=== PATIENT | female | born 1990 | race Caucasian/White ===

== ENCOUNTER 2024-01-10 12:53 | Observation (INO) ==
[2024-01-10] MEDS ORDERED: PHARMACY GLYCEMIC MGMT CONSULT PRN (13:24)
[2024-01-10] MEDS: Patient's HEIGHT &/or WEIGHT Needed STA (14:12)
[2024-01-10] MEDS: SODIUM CHLORIDE 0.9% 1,000 ML IV SCH (14:34)
--- NOTE | 2024-01-10 14:38 | History & Physical Report ---
Date of Service January 10, 2024 Assessment & Plan (1) Kourtney-rectal abscess: Plan: This is a 33yF with a PMH of DM1, anxiety/depression, GERD, IBS, genital herpes who presents as a direct admit from our surgical offices on 01/10/24 with concern for a kourtney-rectal abscess. Patient states she felt a lump in the area last 01/06/24. By Wednesday the area grew and became red and more painful. She ended up going to Urgent Care where the prescribed Doxycycline for concern for a "cyst" per patient. Despite starting the antibiotics she said the area continued to worsen in regards to size, swelling, and pain. She ended up going to the [facility] over the where they performed a bedside I&D. Some packing was placed and it came out the next time she got washed up. Unfortunately last night she felt chills/sweats and could not get comfortable to sleep [id number]. Because the pain felt worse to her she called and got in for a primary care appt today where after evaluating the site of concern was referred her to our surgical offices for another look. Today in our office patient appeared uncomfortable and due to some ongoing induration around the site it was recommended she come into the hospital to undergo a CT scan, IV abx, and determination on further surgery if indicated. Patient otherwise denies CP/SOB, abdominal pain, change in bowel habits. The wound has been draining a yellow/bloody substance for her. - Currently blood work is pending. Vital signs are stable. On examination there is a site of I&D of the R buttocks region with a white central region, with surrounding erythema, induration, and tenderness to palpation. There is bloody drainage mixed with a yellow/coburn substance on gauze dressing. We will obtain a CT a/p for further evaluation and to rule out residual abscess in the area. Pending CT scan and symptoms we may place her on the OR schedule for further incision and drainage tomorrow. For now patient may have a diet, keep NPO at midnight, and will place on IV abx. Pharmacy has been consulted for assistance given patient's history of DM type 1. We will follow up on results and further recommendations to follow. Admission and Anticipated Discharge Date Admission Date: January 10, 2024 History of Present Illness Primary Care Provider: SOFIA Morillo This is a 33yF with a PMH of DM1, anxiety/depression, GERD, IBS , genital herpes who presents as a direct admit from our surgical offices on 01/10/24 with concern for a kourtney-rectal abscess. Patient states she felt a lump in the area last 01/06/24. By Wednesday the area grew and became red and more painful. She ended up going to Urgent Care where the prescribed Doxycycline for concern for a "cyst" per patient. Despite starting the antibiotics she said the area continued to worsen in regards to size, swelling, and pain. She ended up going to the [facility] over the where they performed a bedside I&D. Some packing was placed and it came out the next time she got washed up. Unfortunately last night she felt chills/sweats and could not get comfortable to sleep [id number]. Because the pain felt worse to her she called and got in for a primary care appt today where after evaluating the site of concern referred her to our surgical offices for another look. Today in our office patient appeared uncomfortable and due to some ongoing induration around the site it was recommended she come into the hospital to undergo a CT scan, IV abx, and determination on further surgery if indicated. Patient otherwise denies CP/SOB, abdominal pain, change in bowel habits. The wound has been draining a yellow/bloody substance for her. This has never happened to her before. She denies history of crohns/IBD in family. Allergies Allergy/AdvReac Type Severity Reaction Status Date / Time sulfamethoxazole AdvReac Mild Rash Verified 01/10/24 11:39 [From Bactrim] trimethoprim [From Bactrim] AdvReac Mild Rash Verified 01/10/24 11:39 Home Medications Medication Instructions Recorded Confirmed Type blood-glucose meter #1 ea 02/12/22 01/10/24 Rx rosuvastatin 20 mg tablet 20 mg PO DAILY #90 tabs 02/13/22 01/10/24 Rx acetone (urine) test (Ketostix #50 ea 03/20/22 01/10/24 Rx strips) glucagon 3 mg/actuation nasal 3 mg intranasal ONCE PRN 04/17/22 01/10/24 History spray (Baqsimi) glucose 4 gram chewable tablet 4 g PO Q15M PRN hypoglycemia #90 06/22/22 01/10/24 Rx tabs pen needle, diabetic 32 gauge x #100 ea 06/22/22 01/10/24 Rx 5/32" (BD Ultra-Fine Opal Pen Needle) blood sugar diagnostic (Contour 11/06/22 01/10/24 History Next Test Strips) famotidine 40 mg tablet 40 mg PO BID #180 tabs 01/20/23 01/10/24 Rx pantoprazole 20 mg tablet,delayed 20 mg PO BID #180 tabs 04/16/23 01/10/24 Rx release promethazine 25 mg tablet 25 mg PO TID PRN nausea and 07/30/23 01/10/24 Rx vomiting #20 tabs sumatriptan succinate 50 mg tablet See Rx Instructions PO .COMPLEX 07/30/23 01/10/24 Rx (Imitrex) #20 tabs fluoxetine 20 mg tablet 20 mg PO DAILY #90 tabs 09/27/23 01/10/24 Rx cholecalciferol (vitamin D3) 25 25 mcg PO DAILY 09/30/23 01/10/24 History mcg (1,000 unit) capsule doxycycline hyclate 100 mg tablet 100 mg PO BID 7 days #14 tabs 09/30/23 01/10/24 Rx mecobalamin (vitamin B12) 1,000 1,000 mcg PO DAILY 09/30/23 01/10/24 History mcg lozenges multivitamin with minerals 1 tab PO DAILY 09/30/23 01/10/24 History (Hair,Skin and Nails tablet) valacyclovir 1 gram tablet 1,000 mg PO BID 10 days #20 tabs 09/30/23 01/10/24 Rx insulin degludec 100 unit/mL (3 20 unit (0.2 mL) subcut DAILY #15 11/05/23 01/10/24 Rx mL) subcutaneous pen (Tresiba mL FlexTouch U-100 insulin) Novolog FlexPen U-100 Insulin 100 See Rx Instructions subcut TID #45 11/08/23 01/10/24 Rx unit/mL (3 mL) subcutaneous mL (insulin aspart U-100) Past Med/Surg History Medical History Genital herpes GERD without esophagitis Hiatal hernia History of diabetic ketoacidosis (06/2022) Anxiety and depression Diarrhea Hypercholesterolemia IBS (irritable bowel syndrome) Type 1 diabetes Surgical History History of wisdom tooth extraction Family History Other Breast cancer Denies family history of Ovarian cancer Prostate cancer Myocardial infarction Colorectal cancer Social History Smoking Status: Never smoker Tobacco Type: Cigarettes packs per day: 0.5; Second Hand Exposure: Yes; Do You Dip or Chew Tobacco: No; Hx Alcohol Use: Yes Alcohol Intake Frequency: Monthly or Less Hx Substance Use: Yes Last Used Substance: Unknown Preferred Language: Maori Communication Ability: Effective Visual Impairment: Partially Limited Hearing Ability: Normal Customer Care Voice Consultant Required: No Beliefs That Will Affect Care: None marital status: Legally Current Living Situation: Alone Current Living Situation Comment: friend current occupational status: employed current occupation: [employer] How many Children do You have: 0 Other Information That Helps Us Care for You: No Feels Safe at Home: Yes Safety Concerns: Feels Safe At This Time Childhood Exposure to Second-Hand Smoke: Yes Diet: gluten free and lactose free caffeine: Yes during the past year weight has: remained stable Dental Care, Regularly: Yes Physical Activity Frequency: 3-4 Times per Week Seatbelt Use: always Sunscreen Use: Yes Assistive Devices: Glasses Review of Systems Constitutional: + chills and + sweats; no fever Respiratory: no dyspnea Cardiovascular: no chest pain Gastrointestinal: + nausea; no abdominal pain and no villalpando e in bowel habits Integumentary: hot, painful lump of R buttocks region Physical Exam Physical Exam: awake/alert, no distress Constitutional: well developed and well nourished Respiratory: normal respiratory effort Cardiovascular: Rate/Rhythm: regular rate Gastrointestinal (Abdomen): Percussion/Palpation: abdomen soft Skin: there is a site of I&D of the R buttocks region with a white central region and surrounding erythema and induration, tender to palpation. bloody drainage mixed with a yellow/coburn substance on gauze dressing Results & Data Results & Data Vital Signs (Past 12 Hours) Vital Signs Temp Pulse Resp BP Pulse Ox O2 Del Method 01/10/24 13:26 97.7 F 93 H 14 114/77 99 Room Air 01/10/24 13:20 97.7 F 93 H 14 114/77 99 Room Air PG Care Time/CCT Total # of Minutes Spent Total Time Spent with Patient: Total time spent is greater than 50% in coordination of care (as documented) at patient's floor/unit and/or counseling patient: Coding Level of Care Code 35347 INT INP/OBS CARE 2/55MIN Diagnoses Kourtney-rectal abscess K61.1
[2024-01-10 14:40] LABS: Calcium 9.3 mg/dl (8.6-10.3); Potassium 3.9 mmol/L (3.5-5.1)
[2024-01-10] MEDS: PIPERACILLIN/TAZOBACTAM 4.5 GM in DEXTROSE 5% MINI-B 100 ML IV ONE (14:42)
[2024-01-10 14:46] LABS: BUN Creatinine Ratio 21.3 (10-20); Creatinine Clr Calc Pharmacy 97.8 ml/min; Est GFR (African American) 110.7 ml/min; Est GFR (Non-African American) 95.5 ml/min
[2024-01-10] MEDS: OPTIRAY 320 100ml IV ONE (14:55)
--- NOTE | 2024-01-10 15:11 | Pharmacy Report ---
Pharmacy Glycemic Short Note 2 - Date of Service January 10, 2024 - Glycemic Short BSG Results (Last 24 hours): 01/10/24 01/10/24 13:52 13:57 Glucose 236 H POC Glucose 241 H OUTPATIENT ANTIDIABETIC REGIMEN: * Tresiba 20 units daily (last administered 01/09 AM per RN) * Novolog CHO ratio 8 g CHO/unit * HbA1c 11.0% on 12/13/23 ASSESSMENT: * 33 yo F with poorly controlled TYPE 1 diabetes admitted for perirectal abscess. No historical inpatient data to review. Plan for possible surgical intervention tomorrow with NPO status * Patient has type 1 diabetes therefore a redcution of 20% of basal is indicated for NPO status. Will scheduled tomorrow AM. * Will utilize home CHO ratio. Will however use a much looser correction factor for now since it's unclear at this time how a tighter correction factor will be tolerated and would like to avoid hypoglycemia preop / overnight when patient is NPO * Patient consumed a late lunch. Will therefore omit correction factor with dinner check to help prevent stacking. PLAN FOR INPATIENT GLYCEMIC CONTROL: * Basal insulin * Lantus 16 units SQ qAM (while NPO) * Bolus insulin * NovoLog per scale ACHS or Q6hrs while NPO * Goal Range: Low 120 mg/dL - High 150 mg/dL * Correction Factor: 40 mg/dL/unit * Nutritional / Prandial insulin per carb ratio of 1 unit per 8 grams CHO consumed
--- NOTE | 2024-01-10 15:34 | CT Scan Report ---
ABDOMEN AND PELVIS CT WITH IV CONTRAST CT DOSE: 1266.76 mGy.cm HISTORY: Acute perirectal pain eval possbile johnathan-rectal abscess TECHNIQUE: Multiaxial CT images of the abdomen and pelvis were performed following the IV administrat ion of 90 cc of Optiray, A dose lowering technique was utilized adhering to the principles of ALARA. COMPARISON STUDY: 01/22/2010 FINDINGS: Clear lung bases. No free air. Unremarkable spleen, pancreas, gallbladder, adrenal glands a nd liver. Patency of the hepatic and portal veins. Unremarkable kidneys. No hydronephrosis. Mild blad deborah wall thickening with partial distention. Heterogeneity of the uterus with a few uterine lesions i ncluding a 1.6 cm pedunculated left fundal lesion and possible submucosal lesions. 2 cm right adnexal cystic focus suggestive of a dominant follicle. Aorta and IVC are unremarkable. No lymphadenopathy. No bowel obstruction. Moderate colonic fecal retention. No intra-abdominal fluid collections. Normal appendix. There is a small ulceration involving inferomedial right gluteal fold image 400 series 3 wi th associated skin thickening and subcutaneous stranding. No abscess or perianal fistula. Unremarkabl e osseous structures. IMPRESSION: 1. Small cutaneous ulcer of the inferior medial right gluteal fold with associated cellulitis. No abs cess or fistula. 2. Normal appendix. 3. Moderate colonic fecal retention. ACT 112: Negative or not required by law. The above report was generated using voice recognition software. It may contain grammatical, syntax o r spelling errors. Electronically signed by: Rc Davis M.D. 01/10/2024 3:32 PM
[2024-01-10] MEDS: INSULIN ASPART PER UNIT CHARGE SC SCH ×2 (16:07→17:01)
[2024-01-10] MEDS ORDERED: INSULIN ASPART PER UNIT CHARGE SC ONE (16:30)
[2024-01-10] MEDS: MoRPHine SULFATE 2 MG/ML CARP IV PRN (17:01)
[2024-01-10 18:18] LABS: Basophils # (auto) 0.03 K/uL (0.00-0.20); Basophils % (auto) 0.3 %; Eosinophils # (auto) 0.37 K/uL (0.00-0.50); Eosinophils % (auto) 3.7 %; Hemoglobin 12.7 g/dl (12.0-16.0); Immature Granulocytes # (auto) 0.18 K/uL (0.01-0.20); Immature Granulocytes % (auto) 1.8 %; Lymphocytes # (auto) 1.76 K/uL (1.20-3.40); Lymphocytes % (auto) 17.4 %; Mean Corpuscular Hgb Conc 35.3 g/dL (32.0-36.0); Mean Corpuscular Volume 90.7 fL (80.0-100.0); Mean Platelet Volume 10.9 fL (9.4-12.4); Monocytes # (auto) 0.86 K/uL (0.11-0.59); Monocytes % (auto) 8.5 %; Neutrophils # (auto) 6.92 K/uL (1.40-6.50); Neutrophils % (auto) 68.3 %; Platelet Count 328 K/uL (130-400); RDW Standard Deviation 39.8 fL (36.4-46.3); Red Blood Count 3.97 M/uL (4.20-5.40); White Blood Count 10.12 K/ul (4.8-10.8)
[2024-01-10] MEDS: PIPERACILLIN/TAZOBACTAM 4.5 GM in DEXTROSE 5% MINI-B 100 ML IV SCH (19:34)
[2024-01-10] MEDS: PANTOprazole 40 MG TAB PO SCH (20:28)
[2024-01-10] MEDS: FAMOTIDINE 40 MG TABLET PO SCH (20:29)
[2024-01-11] MEDS: ONDANSETRON INJ 2 MG/ML 2 ML VIAL IV PRN (03:39)
[2024-01-11] MEDS: ACETAMINOPHEN 325 MG TAB PO PRN (03:43)
[2024-01-11 06:00] LABS: Hematocrit (blood only) 34.7 % (37.0-47.0); Hemoglobin 12.2 g/dl (12.0-16.0); Lymphocytes % (auto) 20.4 %; Mean Corpuscular Hemoglobin 32.1 pg (25.0-34.0); Mean Corpuscular Hgb Conc 35.2 g/dL (32.0-36.0); Mean Corpuscular Volume 91.3 fL (80.0-100.0); Mean Platelet Volume 10.5 fL (9.4-12.4); Neutrophils % (auto) 62.7 %; Platelet Count 305 K/uL (130-400); RDW Coefficient of Variation 12.1 % (11.5-14.5); RDW Standard Deviation 40.7 fL (36.4-46.3); White Blood Count 7.54 K/ul (4.8-10.8)
[2024-01-11 06:01] LABS: Basophils # (auto) 0.05 K/uL (0.00-0.20); Basophils % (auto) 0.7 %; Eosinophils # (auto) 0.49 K/uL (0.00-0.50); Eosinophils % (auto) 6.5 %; Immature Granulocytes # (auto) 0.04 K/uL (0.01-0.20); Immature Granulocytes % (auto) 0.5 %; Lymphocytes # (auto) 1.54 K/uL (1.20-3.40); Monocytes # (auto) 0.69 K/uL (0.11-0.59); Monocytes % (auto) 9.2 %; Neutrophils # (auto) 4.73 K/uL (1.40-6.50)
[2024-01-11] MEDS: INSULIN ASPART PER UNIT CHARGE SC SCH ×2 (06:09→13:02)
[2024-01-11 06:16] LABS: BUN Creatinine Ratio 17.9 (10-20); Calcium 8.8 mg/dl (8.6-10.3); Creatinine Clr Calc Pharmacy 100.3 ml/min; Est GFR (African American) 114.2 ml/min; Est GFR (Non-African American) 98.5 ml/min; Potassium 3.8 mmol/L (3.5-5.1)
[2024-01-11] MEDS ORDERED: CARBOHYDRATES FOR HYPOGLYCEMIA PO PRN (07:15)
[2024-01-11] MEDS ORDERED: GLUCOSE 40% GEL 15 GM TUBE PO PRN (07:15)
[2024-01-11] MEDS ORDERED: GLUCOSE 10 TAB/TUBE PO PRN (07:15)
[2024-01-11] MEDS ORDERED: DEXTROSE 50% 50 ML SYRINGE IV PRN (07:15)
[2024-01-11] MEDS ORDERED: GLUCAGON FOR INJ 1 MG VIAL IM PRN (07:15)
[2024-01-11] MEDS: oxyCODONE HCL IR 5 MG TAB (IMMEDIATE RELEASE) PO PRN (07:20)
[2024-01-11] MEDS: LANTUS PER UNIT CHARGE SC SCH (08:52)
[2024-01-11] MEDS: FLUoxetine HCL 20 MG CAP PO SCH (08:52)
--- NOTE | 2024-01-11 09:07 | Surgery Progress Note ---
Date of Service January 11, 2024 Assessment & Plan (1) Johnathan-rectal abscess: Plan: ct shows no abcess nausea improved after zofran. will check on her later today for possible d/c. will d/c on augmentin as doxycycline may have been contributing to her nausea previously. (2) Uncontrolled type 1 diabetes mellitus with hyperglycemia: (3) Gastroparesis due to secondary diabetes: Admission and Anticipated Discharge Date Admission Date: January 10, 2024 Subjective pt seen. her johnathan rectal abcess pain is improved however she states " i do not feel well" and had an emesis earlier this morning. Physical Exam Constitutional: WD/WN, vitals as above no acute distress and not ill appearing Eyes: PERRL, conjunctivae normal, anicteric sclerae EOM intact bilaterally ENMT: external ear and nose normal, oropharynx normal Ears: no hearing impairment Neck: trachea midline, no thyromegaly Respiratory: normal respiratory effort; no respiratory distress and does not use accessory muscles Cardiovascular: Rate/Rhythm: regular rate and regular rhythm Gastrointestinal (Abdomen): normal bowel sounds, soft, nontender, no hepatosplenomegaly Skin: no rashes, warm and dry Psychiatric: Orientation: alert, oriented x 3 and cooperative Results & Data Vital Signs (Past 12 Hours) Vital Signs Temp Pulse Resp BP Pulse Ox O2 Del Method 01/11/24 07:40 36.8 C 79 114/74 97 Room Air 01/11/24 03:50 36.5 C 85 16 122/83 99 Room Air PG Care Time/CCT Total # of Minutes Spent Total Time Spent with Patient: Total time spent is greater than 50% in coordination of care (as documented) at patient's floor/unit and/or counseling patient: Coding Level of Care Code 36580 SUB INP/OBS CARE 11/04MIN Diagnoses Johnathan-rectal abscess K61.1 Uncontrolled type 1 diabetes mellitus with hyperglycemia E10.65 Gastroparesis due to secondary diabetes E13.43
[2024-01-11] MEDS: ACETAMINOPHEN 1,000 MG/100 ML VIAL IV STA (11:38)
[2024-01-11] MEDS: PROMETHAZINE HCL 12.5 MG in SODIUM CHLORIDE 0.9% 50 ML IV PRN (12:25)
[2024-01-11] MEDS ORDERED: LANTUS PER UNIT CHARGE SC ONE (12:30)
[2024-01-11] MEDS: IBUPROFEN 200 MG TAB PO STA (12:57)
[2024-01-12] MEDS ORDERED: INSULIN ASPART PER UNIT CHARGE SC SCH
[2024-01-12] MEDS ORDERED: LANTUS PER UNIT CHARGE SC SCH (09:00)
--- NOTE | 2024-01-13 20:25 | Discharge Summary ---
Date of Service January 11, 2024 Admission HPI Per Admitting Provider This is a 33yF with a PMH of DM1, anxiety/depression, GERD, IBS , genital herpes who presents as a direct admit from our surgical offices on 01/10/24 with concern for a kourtney-rectal abscess. Patient states she felt a lump in the area last 01/06/24. By Wednesday the area grew and became red and more painful. She ended up going to Urgent Care where the prescribed Doxycycline for concern for a "cyst" per patient. Despite starting the antibiotics she said the area continued to worsen in regards to size, swelling, and pain. She ended up going to the [facility] over the where they performed a bedside I&D. Some packing was placed and it came out the next time she got washed up. Unfortunately last night she felt chills/sweats and could not get comfortable to sleep [id number]. Because the pain felt worse to her she called and got in for a primary care appt today where after evaluating the site of concern referred her to our surgical offices for another look. Today in our office patient appeared uncomfortable and due to some ongoing induration around the site it was recommended she come into the hospital to undergo a CT scan, IV abx, and determination on further surgery if indicated. Patient otherwise denies CP/SOB, abdominal pain, change in bowel habits. The wound has been draining a yellow/bloody substance for her. This has never happened to her before. She denies history of crohns/IBD in family. Principal Diagnosis kourtney-rectal abscess type 1 diabetes gastroparesis Discharge Exam awake/alert, no distress Constitutional well developed and well nourished Respiratory normal respiratory effort Cardiovascular Rate/Rhythm: regular rate Gastrointestinal (Abdomen) Percussion/Palpation: abdomen soft + area of I&D site with some erythema and discomfort to palpation Discharge Data Allergies Allergy/AdvReac Type Severity Reaction Status Date / Time sulfamethoxazole AdvReac Mild Rash Verified 01/10/24 11:39 [From Bactrim] trimethoprim [From Bactrim] AdvReac Mild Rash Verified 01/10/24 11:39 Ordered Studies 01/10/24 13:24 CT Abd and Pelvis [CT abd pelvis IV con only] Urgent Hospital Course (1) Kourtney-rectal abscess: This is a 33yF with a PMH of DM1, anxiety/depression, GERD, IBS , genital herpes who presents as a direct admit from our surgical offices on 01/10/24 with concern for a kourtney-rectal abscess that started last . She went to [facility] and was prescribed antibiotics. As this did not resolve her symptoms she went to the [facility] where they performed a bedside I&D. Unfortunately she continued with ongoing severe pain. She saw her PCP on 01/09 and was referred to our surgical offices for further evaluation. In our office patient appeared uncomfortable and due to some ongoing induration around the site it was recommended she come into the hospital to undergo a CT scan, IV abx, and determination on further surgery if indicated. On admission WBC 10. A CT scan was performed that revealed no residual abscess. She was maintained on IV abx and prn pain meds. Diet advanced as tolerated. On 01/10 pain around kourtney rectal area improved. Patient had a couple episodes of small emesis requiring anti- emetics with relief. She stated that this is similar to symptoms she experiences at home and has prescribed promethazine for. She denied any abdominal pain and was having + bowel function. Nausea likely related to her history of gastroparesis 2/2 to her DM1. She was feeling improvement in her symptoms and was discharged to home. Dressing instructions provided in addition to a script for antibiotic for her to completee. She was instructed to follow up in the office with Dr. Bell in 1-2 weeks. (2) Gastroparesis due to secondary diabetes: (3) Uncontrolled type 1 diabetes mellitus with hyperglycemia: Total Time Total Time Spent Total Time Spent (In Minutes): 15 Discharge Plan Discharge Items Patient Disposition: Home - Self-Care Reason For Visit: abscess in R buttock Discharge Diagnosis: kourtney rectal abscess Activity: Per Instructions section Lifting: No more than 25 pounds Bathing Comment: warm sitz baths 3-4x/daily Exercise/Sports: Wait until after follow-up appointment Driving/Machine Use: Resume 1 day after discharge Non-emergency contact: Surgeon Call non-emergency contact if: you have any medication questions, you have a fever, your temperature is above 101.5, your wound has increased redness, your wound has increased drainage and your wound pain has increased Follow-up/Referrals: Lars Coe CRNP [Primary Care Provider] - Lars Bell, DO [Surgeon] - (please call to schedule follow up in clinic within 1-2 weeks ) Diet: Carb Count or DM1 Addtl Attending Provider Instructions: keep a dry gauze dressing or pad in your undergarments to help collect any drainage. change daily and as needed complete the full course of antibiotic prescribed to you You may purchase Tylenol and/or Ibuprofen over the counter if needed for additional pain control over the next few days. Take per manufacturers instructions Pending Studies at Discharge: No Stand-Alone Forms: My [facility], Work/School Release, Smoking Cessation Medications and DC Order Prescriptions: New amoxicillin-pot clavulanate 875-125 mg tablet 1 tab PO Q12H MDD 2 10 Days Qty: 20 0RF Rx Instructions: take one tablet every 12 hours for the next 10 days Continued (DME) Ketostix Strip See Rx Instructions miscellaneous .MEDSUPPLY Qty: 50 11RF Rx Instructions: Check when blood sugars are high famotidine 40 mg tablet 40 mg PO BID Qty: 180 2RF pantoprazole 20 mg tablet,delayed release (DR/EC) 20 mg PO BID Qty: 180 2RF fluoxetine 20 mg tablet 20 mg PO DAILY Qty: 90 1RF insulin degludec [Tresiba FlexTouch U-100] 100 unit/mL (3 mL) insulin pen 20 unit subcut DAILY Qty: 15 1RF insulin aspart U-100 [Novolog FlexPen U-100 Insulin] 100 unit/mL (3 mL) insulin pen See Rx Instructions subcut TID Qty: 45 1RF Rx Instructions: 1 unit for each 8 grams of carb subcut three times a day; Max dose 100units per day cholecalciferol (vitamin D3) 25 mcg (1,000 unit) capsule 25 mcg PO DAILY mecobalamin (vitamin B12) 1,000 mcg lozenge 1,000 mcg PO DAILY Rx Instructions: allow to dissolve in mouth OR may chew lightly before swallowing Hair,Skin and Nails Tablet 1 tab PO DAILY valacyclovir 1 gram tablet 1,000 mg PO BID 10 Days Qty: 20 3RF (DME) Contour Next Test Strips Strip See Rx Instructions .Route Rx Instructions: test 3 times daily (DME) blood-glucose meter Kit See Rx Instructions .ROUTE .MEDSUPPLY Qty: 1 0RF Rx Instructions: As directed TID and PRN rosuvastatin 20 mg tablet 20 mg PO DAILY Qty: 90 3RF Baqsimi 3 mg/actuation spray,non-aerosol 3 mg intranasal ONCE PRN sumatriptan succinate [Imitrex] 50 mg tablet See Rx Instructions PO .COMPLEX Qty: 20 0RF Rx Instructions: take 1 tab at onset of headache; if no relief may repeat 1 tab after at least 2 hrs; max = 4 tabs/24 hr PO promethazine 25 mg tablet 25 mg PO TID PRN (Reason: nausea and vomiting) Qty: 20 0RF glucose 4 gram tablet,chewable 4 g PO Q15M PRN (Reason: hypoglycemia) Qty: 90 0RF Rx Instructions: until symptoms of low blood sugar are controlled (DME) pen needle, diabetic [BD Ultra-Fine Opal Pen Needle] 32 gauge x 5/32" needle See Rx Instructions .Route Qty: 100 2RF Rx Instructions: As directed Discontinued doxycycline hyclate 100 mg tablet 100 mg PO BID 7 Days Qty: 14 0RF Discharge Orders: Discharge Order (Routine); Ordered 01/11/24 Ordered By: Lisset Phelps Admission Data Admit Date/Time: 01/10/24 13:24 Attending Provider: Lars Bell Admit Provider: Lars Bell Primary Care Provider: Lars Coe Other Interventions: Discharge Summary Assessment (RN) Last Done: 01/11/24 14:36 Coding Level of Care Code 63586 IN/OBS DISCH 30 MIN/LESS Diagnoses Kourtney-rectal abscess K61.1 Gastroparesis due to secondary diabetes E13.43 Uncontrolled type 1 diabetes mellitus with hyperglycemia E10.65
== END 2024-01-11 15:27 | disposition home or self-care (01) ==
LOC: 3W 13:09 → INTOOBSV 13:24
DX: E10.65 Type 1 diabetes mellitus with hyperglycemia; K61.1 Rectal abscess; Z88.1 Allergy status to other antibiotic agents; E10.43 Type 1 diabetes mellitus with diabetic autonomic (poly)neuropathy; Z79.899 Other long term (current) drug therapy; Z88.2 Allergy status to sulfonamides; Z79.4 Long term (current) use of insulin